=== PATIENT | female | born 1980 | race Caucasian/White ===

== ENCOUNTER 2017-05-28 21:03 | Emergency (ER) | payer MEDICAID ==
[2017-05-28 21:27] VITALS: BP 117/84; PULSE 70; RESP 18; TEMP 97.7; O2SAT 100
--- NOTE | 2017-05-28 21:56 | C.PDOC ---
History Of Present Illness 37 year old female who was brought in by mother and "friend of the family" for a psychiatric evaluation. Mother/family friend state patient has been having angry outbursts at times; patient denies any specific psychiatric complaints, depression, anxiousness, SI/HI, or physical complaints. Time Seen by Provider: 05/28/17 21:31 Chief Complaint (Nursing): Psychiatric Evaluation History Per: Patient, Family History/Exam Limitations: no limitations Onset/Duration Of Symptoms: Intermittent Episodes Current Symptoms Are (Timing): Still Present Suicide/Self Injury Attempted (Context): None Modifying Factor(s): None Severity: None Associated Symptoms: denies: Depression, Suicidal Thoughts, Suicidal Plan Involuntary Hold By: None Recent travel outside of the [place]: No Past Medical History Reviewed: Historical Data, Nursing Documentation, Vital Signs Vital Signs: Last Vital Signs Temp 97.7 F 05/28/17 21:22 Pulse 70 05/28/17 21:22 Resp 18 05/28/17 21:22 BP 117/84 05/28/17 21:22 Pulse Ox 100 05/28/17 22:13 - Medical History PMH: No Chronic Diseases Surgical History: No Surg Hx Family History: States: No Known Family Hx - Social History Hx Tobacco Use: No Hx Alcohol Use: No Hx Substance Use: No - Immunization History Hx Tetanus Toxoid Vaccination: No Hx Influenza Vaccination: No Hx Pneumococcal Vaccination: No Review Of Systems Except As Marked, All Systems Reviewed And Found Negative. Constitutional: Negative for: Fever Cardiovascular: Negative for: Chest Pain Respiratory: Negative for: Cough, Shortness of Breath Gastrointestinal: Negative for: Nausea, Vomiting, Abdominal Pain, Diarrhea Psych: Negative for: Anxiety, Depression, Psychosis, Suicidal ideation Physical Exam - Physical Exam Appears: Well, Non-toxic, No Acute Distress, Other (Bizarre affect) Skin: Normal Color, Warm, Dry Oral Mucosa: Moist Cardiovascular: Rhythm Regular Respiratory: Normal Breath Sounds, No Rales, No Rhonchi, No Wheezing Gastrointestinal/Abdominal: Normal Exam, Bowel Sounds, Soft, No Tenderness Neurological/Psych: Oriented x3, Normal Speech, Normal Cognition Gait: Steady ED Course And Treatment O2 Sat by Pulse Oximetry: 100 (Room air) Pulse Ox Interpretation: Normal Progress Note: Patient was seen by Crisis and myself at bedside, she denies having SI, HI, or specific psychiatric complaints. Patient can be discharged home and will be given information for outpatient psychiatric follow up. She understands she should return to ED if she has any concerning symptoms. Disposition - Disposition Referrals: [facility] [Outside] Disposition: HOME/ ROUTINE Disposition Time: 22:00 Condition: STABLE Additional Instructions: FOLLOW UP WITH [facility] TOMORROW RETURN TO ER IF YOU HAVE ANY CONCERNING SYMPTOMS Forms: General Discharge Instructions, [facility] (Japanese) Print Language: FIJIAN - POA Present On Arrival: None - Clinical Impression Clinical Impression: Evaluation by psychiatric service required - Scribe Statement The provider has reviewed the documentation as recorded by the Scribe Tarik Hernandez All medical record entries made by the Scribe were at my direction and personally dictated by me. I have reviewed the chart and agree that the record accurately reflects my personal performance of the history, physical exam, medical decision making, and the department course for this patient. I have also personally directed, reviewed, and agree with the discharge instructions and disposition.
== END 2017-05-28 22:15 | disposition home or self-care (01) ==
LOC: C.ER 21:03
DX: Z00.8 Encounter for other general examination (principal)